=== PATIENT | female | born 1965 | race Caucasian/White ===

== ENCOUNTER 2022-08-01 11:07 | Outpatient (CLI) | payer BC | END 2022-08-01 11:08 | disposition home or self-care (01) | LOC: MADLABBHPM 11:07 → MADLAB 11:08 | PROVIDERS: ATTEND Family Medicine | DX: R39.15 Urgency of urination (principal) | CPT/HCPCS: 87077; 87086; 87186 ==

== ENCOUNTER 2023-06-02 10:27 | Emergency (ER) | payer BC ==
[~2023-06-02 10:27] MED LIST: Sodium Chloride 0.9% 1,000 ML BAG ONE
[2023-06-02] MEDS ORDERED: Acetaminophen 500 MG TAB ONE (11:15)
[2023-06-02 11:48] LABS: SARS-CoV-2 NAA Rapid Test DETECTED (NotDetected)
== END 2023-06-02 13:40 | disposition home or self-care (01) ==
LOC: MADERS 10:27
DX: U07.1 COVID-19 (principal); J32.9 Chronic sinusitis, unspecified
CPT/HCPCS: 71045; 87081; 87430; 87804; 96360; J7050; U0002